=== PATIENT | female | born 1995 | race American Indian/Alaskan Native ===

== ENCOUNTER 2017-04-21 00:30 | Outpatient (CLI) | payer MEDICAID ==
[2017-04-21] MEDS ORDERED: VISTARIL PO ONE (04:31)
--- NOTE | 2017-04-21 08:55 | Event Note ---
Date: 04/21/17 Patient presented to L&D triage to rule out active labor. She is 39 weeks, 5 days gestation, having her first baby. She reported to RN that she was having regular contractions. She reported active movement. She denied vaginal bleeding or leaking of fluid. After oral hydration, contractions spaced. heart rate tracing category 1. Cervix was 2 cm and thick and did not change after several hours of observation. Patient was discharged home with labor precautions as she was not in active labor.
[2017-04-21 09:03] VITALS: BP 101/53
== END 2017-04-21 04:45 | disposition home or self-care (01) ==
LOC: TRG 00:30
PROVIDERS: ATTEND Obstetrics & Gynecology
DX: O47.1 False labor at or after 37 completed weeks of gestation (principal); Z3A.39 39 weeks gestation of pregnancy
CPT/HCPCS: 59025; Q0177

== ENCOUNTER 2020-09-20 03:42 | Outpatient (CLI) | payer MEDICAID ==
[2020-09-20] MEDS ORDERED: LACTATED RINGERS 500 ML IV ONE (04:04)
[2020-09-20 04:10] VITALS: BP 119/71
== END 2020-09-20 06:14 | disposition home or self-care (01) ==
LOC: TRG 03:42 → APU 03:47 → TRG 06:14
PROVIDERS: ATTEND Obstetrics & Gynecology
DX: O47.03 False labor before 37 completed weeks of gestation, third trimester (principal); Z3A.37 37 weeks gestation of pregnancy
CPT/HCPCS: 59025

== ENCOUNTER 2020-10-10 17:27 | Inpatient (IN) | payer MEDICAID ==
[2020-10-10 18:34] LABS: Bacteria,Urine 1+ /HPF (Negative); Bilirubin,Urine NEG (Negative); Blood,Urine NEG (Negative); Color,Urine Yellow (Yellow); Mucus,Urine 3+ /HPF
[2020-10-10 18:35] LABS: Protein,Urine >500 mg/dL (Negative)
[2020-10-10 18:56] LABS: Hematocrit 31.8 % (30.3-42.9); Hemoglobin 10.8 gm/dl (10.1-14.3); Mean Corpuscular HGB Conc 34 % (30-34); Mean Corpuscular Volume 96 fl (79-97); Platelet Count 150 K/mm3 (140-440); Red Cell Distribution Width 14.1 % (13.2-15.2)
[2020-10-10] MEDS ORDERED: LACTATED RINGERS 1,000 ML IV SCH ×2 (19:15→21:45)
[2020-10-10 19:18] LABS: Alanine Aminotransferase 9 units/L (7-56); Uric Acid 5.9 mg/dL (3.5-7.6)
--- NOTE | 2020-10-10 20:26 | History and Physical Report ---
History of Present Illness Date of examination: 10/10/20 History of present illness: Patient was sent to triage by the office after calling and complaining of swelling and headache. Patient without contractions. Menstrual History Regularity: irregular Duration: 4 LMP: 01/2020 LMP reliability: month known LMP character: normal test type: urine test Date: 03/14/2020 BC at conception: BCP Planned ? no EDC Calculations EDC Confirmation: 10/30/2020 Past History : 3 Term Births: 1 Living Children: 1 Elect. Ab: 1 # 1 Delivery date: 2017 Weeks Gestation: 39 Delivery type: [facility] Sex: Female weight: 8-2 Comments: No complication Risk Factors: Smoked Tobacco Use: Never smoker Smokeless Tobacco Use: Never Drug use: no HIV high-risk behavior: no Alcohol use: no Exercise: no Seatbelt use: 100 % PAP Smear History: Date of Last PAP Smear: 01/14/2020 Results: Normal, per pt PAP Smear History: Date of Last PAP Smear: 09/16/2019 Results: normal Past Medical History: Negative Past Medical History Past Surgical History: Negative Past Surgical History Family History Summary: Other Family Member - Has No Family History of Uterine Cancer - Entered On: 03/31/2020 Other Family Member - Has No Family History of Stomach Cancer - Entered On: 03/31/2020 Other Family Member - Has No Family History of Spontaneous DVT-PE - Entered On: 03/31/2020 Other Family Member - Has No Family History of Small Bowel Cancer - Entered On: 03/31/2020 Other Family Member - Has No Family History of Pancreatic Cancer - Entered On: 03/31/2020 Other Family Member - Has No Family History of Ovarvian Cancer - Entered On: 03/31/2020 Other Family Member - Has No Family History of Kidney/Urinary Tract Cancer - Entered On: 03/31/2020 Other Family Member - Has No Family History of Colon Cancer - Entered On: 03/31/2020 Other Family Member - Has No Family History of Brain Cancer - Entered On: 03/31/2020 Other Family Member - Has No Family History of Biliary Tract Cancer - Entered On: 03/31/2020 Mother - Has Family History Breast Cancer - Entered On: 03/31/2020 Social History: Patient is single Smoking History: Patient has never smoked. 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 Infection History Hx of STD: none HIV Risk Eval: no Personal hx. of genital herpes: no Partner hx. of genital herpes: no Rash, Viral, or Febrile illness since last LMP? no Varicella/Chicken Pox Status: Unknown TB Risk: no Genetic History Congenital Heart Defect: Mom: no Dad: no [place] Disease: Mom: no Dad: no Thalassemia Mom: no Dad: no Neural Tube Defect Mom: no Dad: no Down's Syndrome Mom: no Dad: no Micky-Sachs Mom: no Dad: no Sickle Cell Disease/Trait Mom: no Dad: no Hemophilia Mom: no Dad: no Muscular Dystrophy Mom: no Dad: no Cystic Fibrosis Mom: no Dad: no Spickard Chorea Mom: no Dad: no Mental Retardation Mom: no Dad: no Fragile X Mom: no Dad: no Other Genetic/Chromosomal Disorder Mom: no Dad: no Child w/other defect Mom: no Dad: no Enviromental Exposures Enviromental Exposures Reviewed Xray Exposure: no Medication, drug, or alcohol use since LMP: no Chemical/Other Exposure: no Exposure to Cat Liter: no Hx of Parvovirus (Fifth Disease): no Occupational Exposure to Children: none Comments: unemployeed Current Allergies: No known allergies Past History Past Medical History: other (SEE HPI FOR DETAILS) Past Surgical History: other (SEE HPI FOR DETAILS) 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: other (SEE HPI FOR DETAILS) Family/Genetic History: other (SEE HPI FOR DETAILS) Social history: full code, other (SEE HPI FOR DETAILS) - Obstetrical History Expected Date of Delivery: 10/30/20 Actual Gestation: 37 Week(s) 2 Day(s) : 3 Para: 1 Hx # Term Pregnancies: 1 Number of Pregnancies: 0 Spontaneous Abortions: 0 Induced : 1 Number of Living Children: 1 Medications and Allergies Allergies Allergy/AdvReac Type Severity Reaction Status Date / Time No Known Allergies Allergy Verified 04/21/17 04:37 Home Medications Medication Instructions Recorded Confirmed Last Taken Type Vit-Fe Fumar-FA [ 1 tab PO DAILY 09/20/20 09/20/20 1 Day Ago History Vitamin] ~09/19/20 Active Meds: Active Medications Lactated Ringer's (Lactated Ringers) 1,000 mls @ 125 mls/hr IV DIRECT [facility] Review of Systems Constitutional: other (SEE HPI FOR DETAILS) - Vital Signs Vital signs: Vital Signs Pulse BP 74 146/87 10/10/20 18:06 10/10/20 18:06 Temp Pulse Resp BP Pulse Ox 98.4 F 65 20 139/91 100 10/10/20 18:13 10/10/20 20:20 10/10/20 18:13 10/10/20 20:20 10/10/20 20:02 Results Result Diagrams: 10/10/20 Unknown 10/10/20 Unknown Abnormal lab results 10/10/20 10/10/20 10/10/20 Range/Units Unknown Unknown Unknown RBC 3.30 L (3.65-5.03) M/mm3 MCH 33 H (28-32) pg Lactate Dehydrogenase 243 H (91-180) units/L Ur Specific [place] 1.031 H (1.003-1.030) U Epithel Cells (Auto) 14.0 H (0-13.0) /HPF All other labs normal. Assessment and Plan - Patient Problems (1) 37 weeks gestation of Current Visit: Yes Status: Acute (2) Elevated blood pressure affecting in third trimester, antepartum Current Visit: Yes Status: Acute Plan to address problem: Patient's initial blood pressures 130s-150s/80s-90s Her blood pressure readings did improved some during her observation in triage .Labwork within normal limits except for proteinuria. Patient's headache had resolved she denies abdominal pain or visual disturbance. Patient with unfavorable cervix. Will admit obtain 24 hour urine for protein. monitor blood pressure closely. Watch for signs/ symptoms of pre-eclampsia. Discussed plan with patient via phone all questions answered. Precutions given. Patient agreed with plan. (3) Morbid (severe) obesity due to excess calories Current Visit: Yes Status: Acute (4) BMI 39.0-39.9,adult Current Visit: Yes Status: Acute
[2020-10-10] MEDS ORDERED: ALUM-MAG HYDROXIDE-SIMETHICONE 200-200-20MG/5ML ORAL LIQD 30 ML PO PRN (20:33)
[2020-10-10] MEDS ORDERED: ACETAMINOPHEN 325 MG TAB PO PRN (20:33)
[2020-10-10] MEDS ORDERED: DOCUSATE SODIUM 100 MG CAP PO PRN (20:33)
[2020-10-10] MEDS ORDERED: MAGNESIUM HYDROXIDE (MOM) ORAL LIQD UDC PO PRN (20:33)
--- NOTE | 2020-10-11 07:32 | Progress Note ---
Assessment and Plan A: 24 y.o. @ 37.2 wks, obs admission for r/o pre e. P: Continue to observe blood pressure and for s/sx of pre e. 24 hour d/t be completed tonight @ 0805 pm. Subjective - Subjective Date of service: 10/11/20 (Pt doing well) Principal diagnosis: IUP @ 37.2 wks, r/o pre eclampsia Objective - Vital Signs Vital Signs: Vital Signs - 12hr 10/10/20 10/10/20 10/10/20 19:35 19:37 19:42 Pulse Rate 54 L 60 61 Blood Pressure 151/86 O2 Sat by Pulse 97 96 Oximetry 10/10/20 10/10/20 10/10/20 19:47 19:50 19:52 Pulse Rate 66 57 L 61 Blood Pressure 155/92 O2 Sat by Pulse 97 98 Oximetry 10/10/20 10/10/20 10/10/20 19:57 20:02 20:20 Pulse Rate 67 72 65 Blood Pressure 139/91 O2 Sat by Pulse 99 100 Oximetry 10/10/20 10/10/20 10/10/20 21:36 22:07 22:20 Pulse Rate 69 74 64 Blood Pressure 141/83 159/91 126/65 O2 Sat by Pulse Oximetry 10/10/20 10/11/20 10/11/20 23:10 00:01 00:02 Pulse Rate 60 71 63 Blood Pressure 126/67 163/74 139/68 O2 Sat by Pulse Oximetry 10/11/20 10/11/20 10/11/20 01:00 02:01 03:01 Pulse Rate 71 64 82 Blood Pressure 140/85 143/75 136/80 O2 Sat by Pulse Oximetry 10/11/20 10/11/20 10/11/20 04:00 05:01 06:01 Pulse Rate 60 59 L 62 Blood Pressure 138/69 147/69 155/87 O2 Sat by Pulse Oximetry 10/11/20 07:01 Pulse Rate 71 Blood Pressure 145/81 O2 Sat by Pulse Oximetry - Exam Narrative Exam: Pt denies GARCIA, blurred vision, spots before your eyes, chest pain, shortness of breath, upper abdominal pain, vaginal bleeding, LOF. Pt states that she is having some occasional ctxs. We discussed that if ctxs increase in frequency, or any pre e s/sx occur to let the RN know immediately. Pt verbalized understanding. Breasts: deferred Cardiovascular: Regular rate Lungs: Normal air movement Abdomen: Present: normal appearance, soft Uterus: Present: normal FHR: category 1 Uterine Contraction Monitor Mode: External Uterine Contraction Pattern: Absent Extremities: edema (Trace generalized) Deep Tendon Reflex Grade: Normal +2 - Labs Labs: Abnormal Labs 10/10/20 10/10/20 10/10/20 Unknown Unknown Unknown RBC 3.30 L MCH 33 H Lactate Dehydrogenase 243 H Ur Specific [place] 1.031 H U Epithel Cells (Auto) 14.0 H Laboratory Results - last 24 hr 10/10/20 10/10/20 10/10/20 Unknown Unknown Unknown WBC 8.8 RBC 3.30 L Hgb 10.8 Hct 31.8 MCV 96 MCH 33 H MCHC 34 RDW 14.1 Plt Count 150 Creatinine 0.7 Estimated GFR > 60 Uric Acid 5.9 AST 16 ALT 9 Lactate Dehydrogenase 243 H Urine Color Yellow Urine Turbidity Slightly-cloudy Urine pH 6.0 Ur Specific [place] 1.031 H Urine Protein >500 Urine Glucose (UA) Neg Urine Ketones Neg Urine Blood Neg Urine Nitrite Neg Urine Bilirubin Neg Urine Urobilinogen 4.0 Ur Leukocyte Esterase Tr Urine WBC (Auto) 3.0 Urine RBC (Auto) 7.0 U Epithel Cells (Auto) 14.0 H Urine Bacteria (Auto) 1+ Urine Mucus 3+
[2020-10-11] MEDS ORDERED: PRENATAL VIT27-FE FUMARATE-FOLIC ACID VIT TAB PO SCH (10:00)
--- NOTE | 2020-10-11 17:29 | Event Note ---
Date: 10/11/20 (Starting IOL) Received a call from RN taking care of patient to ask about the plan of care for patient. When reviewing vital signs noticed that blood pressure had been elevated with the highest being 176/95. The repeat blood pressure 161/100. Urine dipstick this AM was greater than 500. At this time patient continues to deny GARCIA, blurred vision, spots before her eyes, chest pain, shortness of breath, and upper abdominal pain. Consulted with Dr. Dobson. Will initiate IOL, hold off on magnesium infusion until more active labor and/or if blood pressures remain consistently elevated, and discontinue 24 hour urine. Explained this plan of care to the patient, IOL to be started d/t elevated blood pressures and large amount of protein in her urine. Will allow her to shower and eat dinner and then place Cervidil. Pt verbalized understanding and all questions and concerns were addressed. Orders to start IOL placed.
[2020-10-11] MEDS ORDERED: TERBUTALINE 1 MG/1 ML INJ SUB-Q PRN (17:30)
[2020-10-11] MEDS ORDERED: CARBOPROST TROMETHAMINE 250 MCG/1 ML INJ IM PRN (17:30)
[2020-10-11] MEDS ORDERED: NALOXONE 0.4 MG/1 ML INJ IV PRN (17:30)
[2020-10-11] MEDS ORDERED: miSOPROStol 200 MCG TAB PR PRN (17:30)
[2020-10-11] MEDS ORDERED: fentaNYL 100 MCG/2 ML INJ IV PRN (17:30)
[2020-10-11] MEDS ORDERED: ePHEDrine SULFATE 50 MG/1 ML INJ IV PRN (17:30)
[2020-10-11] MEDS ORDERED: PROMETHAZINE 25 MG TAB PO PRN (17:30)
[2020-10-11] MEDS ORDERED: LOPERAMIDE 2 MG CAP PO PRN (17:30)
[2020-10-11] MEDS ORDERED: ONDANSETRON 4 MG/2 ML INJ IV PRN (17:30)
[2020-10-11] MEDS ORDERED: OXYTOCIN 10 UNIT/1 ML INJ IM PRN (17:30)
[2020-10-11] MEDS ORDERED: LACTATED RINGERS 1,000 ML IV SCH (17:30)
[2020-10-11] MEDS ORDERED: MINERAL OIL 30 ML ORAL LIQD PO PRN (17:30)
[2020-10-11] MEDS ORDERED: ACETAMINOPHEN 500 MG TAB PO PRN (17:37)
--- NOTE | 2020-10-11 17:46 | Event Note ---
Date: 10/11/20 Given pt has had several blood pressures in the severe ranges and she has protinuria on urine dip, Will give dx of severe pre E and proceed with IOL at this time. 24 hour protein has been discontinued as it will not aid in decision making at this time. Pt initially did have a headache which prompted call in office and f/u in triage.
[2020-10-11] MEDS ORDERED: CALCIUM GLUCONATE 1000 MG/10 ML INJ IV ONE (18:00)
[2020-10-11] MEDS ORDERED: DINOPROSTONE 10 MG VAG SUPP VG ONE (18:00)
[2020-10-11] MEDS ORDERED: LIDOCAINE (2%) 20 MG/1 ML VIAL 20 ML MDV INFILTRATI ONE (19:00)
--- NOTE | 2020-10-12 07:35 | Progress Note ---
Assessment and Plan discussed plan with patient for vaginal cytotec and reassess. pt is aware it could take several doses and if no signs of labor by this evening, will reevaluate. All questions addressed, pt verbalizes understanding. - Patient Problems (1) Pre-eclampsia Current Visit: Yes Status: Acute Qualifiers: Trimester: third trimester Qualified Code(s): O14.93 - Unspecified pre- eclampsia, third trimester Plan to address problem: Plan to start Mag sulfate when in labor IOL in progress Monitor for worsening s/s pre-e (2) 37 weeks gestation of Current Visit: Yes Status: Acute Subjective - Subjective Date of service: 10/12/20 Principal diagnosis: IUP @ 37.3 wks, IOL for pre-e Patient reports: movement normal, contractions (cramping through the night), no loss of fluid, no vaginal bleeding, no other (denies GARCIA, visual changes or epigastric pain) Objective - Vital Signs Vital Signs: Vital Signs - 12hr 10/11/20 10/12/20 10/12/20 23:15 02:10 03:48 Temperature 98.5 F Pulse Rate 74 61 Respiratory Rate Blood Pressure 137/78 135/90 Blood Pressure [Left] O2 Sat by Pulse Oximetry 10/12/20 10/12/20 10/12/20 03:53 03:56 03:58 Temperature Pulse Rate 58 L 62 68 Respiratory Rate Blood Pressure Blood Pressure [Left] O2 Sat by Pulse 96 94 97 Oximetry 10/12/20 10/12/20 10/12/20 04:02 04:03 04:08 Temperature Pulse Rate 58 L 60 58 L Respiratory Rate Blood Pressure Blood Pressure [Left] O2 Sat by Pulse 94 94 95 Oximetry 10/12/20 10/12/20 10/12/20 04:10 04:13 04:15 Temperature 98.6 F Pulse Rate 72 60 Respiratory Rate Blood Pressure Blood Pressure [Left] O2 Sat by Pulse 93 96 Oximetry 10/12/20 10/12/20 10/12/20 04:18 04:23 04:28 Temperature Pulse Rate 64 58 L 58 L Respiratory Rate Blood Pressure 175/86 Blood Pressure [Left] O2 Sat by Pulse 96 96 96 Oximetry 10/12/20 10/12/20 10/12/20 04:33 04:38 04:43 Temperature Pulse Rate 55 L 61 56 L Respiratory Rate Blood Pressure Blood Pressure [Left] O2 Sat by Pulse 97 96 97 Oximetry 10/12/20 10/12/20 10/12/20 04:48 04:53 04:55 Temperature Pulse Rate 64 56 L 76 Respiratory Rate Blood Pressure 155/87 Blood Pressure [Left] O2 Sat by Pulse 97 97 94 Oximetry 10/12/20 10/12/20 10/12/20 04:58 05:03 05:08 Temperature Pulse Rate 73 60 62 Respiratory Rate Blood Pressure Blood Pressure [Left] O2 Sat by Pulse 96 97 96 Oximetry 10/12/20 10/12/20 10/12/20 05:13 05:18 05:23 Temperature Pulse Rate 59 L 61 67 Respiratory Rate Blood Pressure Blood Pressure [Left] O2 Sat by Pulse 96 96 97 Oximetry 10/12/20 10/12/20 10/12/20 05:28 05:33 05:38 Temperature Pulse Rate 78 85 73 Respiratory Rate Blood Pressure Blood Pressure [Left] O2 Sat by Pulse 86 98 98 Oximetry 10/12/20 10/12/20 10/12/20 05:43 05:48 05:53 Temperature Pulse Rate 61 61 66 Respiratory Rate Blood Pressure Blood Pressure [Left] O2 Sat by Pulse 98 98 98 Oximetry 10/12/20 10/12/20 10/12/20 05:58 07:22 07:24 Temperature 98.0 F Pulse Rate 69 55 L 57 L Respiratory 16 Rate Blood Pressure 138/78 Blood Pressure 138/78 [Left] O2 Sat by Pulse 98 92 98 Oximetry - Exam Breasts: normal Cardiovascular: Regular rate Lungs: Normal air movement Abdomen: Present: normal appearance, soft Vulva: both: normal Uterus: Present: normal, fundal height above umbilicus FHR: category 1 Uterine Contraction Monitor Mode: External Uterine Contraction Pattern: Absent Uterine Tone Measurement Phase: Resting Extremities: normal Deep Tendon Reflex Grade: Normal +2 - Labs Labs: Abnormal Labs 10/10/20 10/10/20 10/10/20 Unknown Unknown Unknown RBC 3.30 L MCH 33 H Lactate Dehydrogenase 243 H Ur Specific [place] 1.031 H U Epithel Cells (Auto) 14.0 H Laboratory Results - last 24 hr 10/11/20 10/11/20 10/11/20 20:55 20:55 Unknown Syphilis IgG Antibody Nonreactive Coronavirus (PCR) Negative Blood Type O POSITIVE Antibody Screen Negative
[2020-10-12] MEDS: miSOPROStol 25 MCG TAB VG SCH ×2 (08:17→11:57)
[2020-10-12] MEDS: LACTATED RINGERS 1,000 ML IV SCH ×2 (09:11→17:51)
[2020-10-12] MEDS ORDERED: AMPICILLIN/NS 2 GM/100 ML 2 GM/100 ML BAG IV ONE ×2 (11:00→16:00)
[2020-10-12] MEDS ORDERED: AMPICILLIN/NS 1 GM/50 ML 1 GM/50 ML BAG IV SCH (15:00)
[2020-10-12] MEDS ORDERED: hydrALAZINE 20 MG/1 ML INJ IV NR (15:05)
[2020-10-12] MEDS ORDERED: MAGNESIUM SULFATE 4 GM/100 ML BAG IV ONE (15:30)
--- NOTE | 2020-10-12 15:55 | Progress Note ---
Assessment and Plan Pt is feeling ctx, denies need for epidural at this time. Will start pitocin to continue IOL. Anticipate . - Patient Problems (1) Pre-eclampsia Current Visit: Yes Status: Acute Qualifiers: Trimester: third trimester Qualified Code(s): O14.93 - Unspecified pre- eclampsia, third trimester Plan to address problem: Mag started for neuro protection, pt has started to labor after second dose of cytotec. (2) 37 weeks gestation of Current Visit: Yes Status: Acute (3) GBS (group B Streptococcus carrier), +RV culture, currently Current Visit: Yes Status: Acute Plan to address problem: Will start Ampicillin q4hrs until delivery Subjective - Subjective Date of service: 10/12/20 Principal diagnosis: IUP @ 37.3 wks, IOL for pre-e Patient reports: movement normal, contractions, no loss of fluid, no vaginal bleeding, no other (denies GARCIA, visual changes or epigastric pain) Objective - Vital Signs Vital Signs: Vital Signs - 12hr 10/12/20 10/12/20 10/12/20 03:53 03:56 03:58 Temperature Pulse Rate 58 L 62 68 Respiratory Rate Blood Pressure Blood Pressure [Left] O2 Sat by Pulse 96 94 97 Oximetry 10/12/20 10/12/20 10/12/20 04:02 04:03 04:08 Temperature Pulse Rate 58 L 60 58 L Respiratory Rate Blood Pressure Blood Pressure [Left] O2 Sat by Pulse 94 94 95 Oximetry 10/12/20 10/12/20 10/12/20 04:10 04:13 04:15 Temperature 98.6 F Pulse Rate 72 60 Respiratory Rate Blood Pressure Blood Pressure [Left] O2 Sat by Pulse 93 96 Oximetry 10/12/20 10/12/20 10/12/20 04:18 04:23 04:28 Temperature Pulse Rate 64 58 L 58 L Respiratory Rate Blood Pressure 175/86 Blood Pressure [Left] O2 Sat by Pulse 96 96 96 Oximetry 10/12/20 10/12/20 10/12/20 04:33 04:38 04:43 Temperature Pulse Rate 55 L 61 56 L Respiratory Rate Blood Pressure Blood Pressure [Left] O2 Sat by Pulse 97 96 97 Oximetry 10/12/20 10/12/20 10/12/20 04:48 04:53 04:55 Temperature Pulse Rate 64 56 L 76 Respiratory Rate Blood Pressure 155/87 Blood Pressure [Left] O2 Sat by Pulse 97 97 94 Oximetry 10/12/20 10/12/20 10/12/20 04:58 05:03 05:08 Temperature Pulse Rate 73 60 62 Respiratory Rate Blood Pressure Blood Pressure [Left] O2 Sat by Pulse 96 97 96 Oximetry 10/12/20 10/12/20 10/12/20 05:13 05:18 05:23 Temperature Pulse Rate 59 L 61 67 Respiratory Rate Blood Pressure Blood Pressure [Left] O2 Sat by Pulse 96 96 97 Oximetry 10/12/20 10/12/20 10/12/20 05:28 05:33 05:38 Temperature Pulse Rate 78 85 73 Respiratory Rate Blood Pressure Blood Pressure [Left] O2 Sat by Pulse 86 98 98 Oximetry 10/12/20 10/12/20 10/12/20 05:43 05:48 05:53 Temperature Pulse Rate 61 61 66 Respiratory Rate Blood Pressure Blood Pressure [Left] O2 Sat by Pulse 98 98 98 Oximetry 10/12/20 10/12/20 10/12/20 05:58 07:22 07:24 Temperature 98.0 F Pulse Rate 69 55 L 57 L Respiratory 16 Rate Blood Pressure 138/78 Blood Pressure 138/78 [Left] O2 Sat by Pulse 98 92 98 Oximetry 10/12/20 10/12/20 10/12/20 07:25 11:10 11:11 Temperature 98.3 F Pulse Rate 68 65 Respiratory 20 Rate Blood Pressure 137/79 Blood Pressure 137/79 [Left] O2 Sat by Pulse 94 98 Oximetry 10/12/20 10/12/20 10/12/20 14:37 14:38 14:42 Temperature 98 F Pulse Rate 62 70 70 Respiratory 17 Rate Blood Pressure 195/107 Blood Pressure [Left] O2 Sat by Pulse 99 96 100 Oximetry 10/12/20 10/12/20 10/12/20 14:47 14:52 14:56 Temperature Pulse Rate 80 66 60 Respiratory Rate Blood Pressure 185/103 Blood Pressure [Left] O2 Sat by Pulse 100 100 Oximetry 10/12/20 10/12/20 10/12/20 14:57 15:02 15:07 Temperature Pulse Rate 60 57 L 65 Respiratory Rate Blood Pressure Blood Pressure [Left] O2 Sat by Pulse 99 99 99 Oximetry 10/12/20 10/12/20 10/12/20 15:09 15:12 15:17 Temperature Pulse Rate 61 62 74 Respiratory Rate Blood Pressure 171/84 Blood Pressure [Left] O2 Sat by Pulse 100 99 Oximetry 10/12/20 10/12/20 10/12/20 15:22 15:26 15:27 Temperature Pulse Rate 68 57 L 61 Respiratory Rate Blood Pressure 188/96 Blood Pressure [Left] O2 Sat by Pulse 99 99 Oximetry 10/12/20 10/12/20 10/12/20 15:32 15:37 15:39 Temperature Pulse Rate 69 79 77 Respiratory Rate Blood Pressure 163/87 Blood Pressure [Left] O2 Sat by Pulse 99 98 Oximetry 10/12/20 10/12/20 10/12/20 15:42 15:43 15:44 Temperature Pulse Rate 81 82 82 Respiratory Rate Blood Pressure 147/82 152/84 Blood Pressure [Left] O2 Sat by Pulse 99 Oximetry 10/12/20 15:47 Temperature Pulse Rate 85 Respiratory Rate Blood Pressure Blood Pressure [Left] O2 Sat by Pulse 99 Oximetry - Exam Cardiovascular: Regular rate Lungs: Normal air movement Abdomen: Present: normal appearance, soft Vulva: both: normal Uterus: Present: normal, fundal height above umbilicus FHR: auscultation normal, category 1 Uterine Contraction Monitor Mode: External Cervical Dilatation: 3.5 (posterior but very soft) Cervical Effacement Percentage: 80 station: -1 Uterine Contraction Frequency (min): 2-4 Uterine Contraction Duration: 50-60 Uterine Contraction Pattern: Regular Uterine Tone Measurement Phase: Contraction Uterine Contraction Intensity: Moderate Extremities: normal Deep Tendon Reflex Grade: Normal +2 - Labs Labs: Abnormal Labs 10/10/20 10/10/20 10/10/20 Unknown Unknown Unknown RBC 3.30 L MCH 33 H Lactate Dehydrogenase 243 H Ur Specific [place] 1.031 H U Epithel Cells (Auto) 14.0 H Laboratory Results - last 24 hr 10/11/20 10/11/20 20:55 20:55 Syphilis IgG Antibody Nonreactive Blood Type O POSITIVE Antibody Screen Negative
[2020-10-12] MEDS ORDERED: OXYTOCIN DRIP 30 UNITS/500 ML BAG IV SCH (16:00)
[2020-10-12] MEDS: MAGNESIUM SULFATE 40GM/1000ML 40 GM/1,000 ML BAG IV SCH (16:27)
[2020-10-12] MEDS ORDERED: NALOXONE 2 MG/2 ML INJ IV PRN (17:47)
[2020-10-12] MEDS ORDERED: ePHEDrine SULFATE 50 MG/1 ML INJ IV PRN (17:47)
--- NOTE | 2020-10-12 17:49 | Anesthesia Consultation ---
Anesthesia Consult and Med Hx Date of service: 10/12/20 - Airway Anesthetic Teeth Evaluation: Good ROM Head & Neck: Adequate Mental/Hyoid Distance: Adequate Mallampati Class: Class II Intubation Access Assessment: Probably Good - Pulmonary Exam CTA: Yes - Cardiac Exam Cardiac Exam: RRR - Pre-Operative Health Status ASA Pre-Surgery Classification: ASA3 Proposed Anesthetic Plan: Epidural - Pulmonary Hx Asthma: No COPD: No Hx Pneumonia: No - Cardiovascular System Hx Hypertension: Yes - Central Nervous System Hx Seizures: No Hx Psychiatric Problems: No - Endocrine Hx Renal Disease: No Hx End Stage Renal Disease: No Hx Hypothyroidism: No Hx Hyperthyroidism: No - Hematic Hx Anemia: No Hx Sickle Cell Disease: No - Other Systems Hx Alcohol Use: No Hx Obesity: Yes
--- NOTE | 2020-10-12 17:57 | Event Note ---
Date: 10/12/20 SROM - clear fluid. Patient being bolus for epidural. IUPC and ISE placed without difficulty for adequate monitoring. SVE now midline, 4-5/90/-1.
[2020-10-12] MEDS ORDERED: fentaNYL-BUPIV 2 MCG/ML-0.125% 200 MCG/100 ML BAG EPIDURAL SCH (18:00)
--- NOTE | 2020-10-12 18:24 | Progress Note ---
Labor Epidural - Labor Epidural Start Time: 18:16 Stop Time: 18:21 Performed by:: GERALDINE ROSAS Procedure: Patient is requesting epidural for labor pain. H&P, and labs reviewed. Procedure explained, questions answered, consent obtained. Patient in sitting position with blood pressure cuff and pulse ox on and working. Timeout performed immediately before start of procedure. Sterile chlorahexadine 0.5% prep/drape. 5 mL 1% lidocaine skin wheal at L[3]-L[4]. 18-gauge Tuohy epidural needle advanced to [id number] with saline at [7] cm. Epidural catheter advanced to [12] cm, negative aspiration for blood and csf, negative test dose 3 ml 1.5% lidocaine with epinephrine. Epidural dexmedetomidine [30] mcg administered. Sterile steri-strips and tegaderm applied, followed by tape reinforcement. Patient tolerated procedure well. Royce REHMNA
[2020-10-12] MEDS: OXYTOCIN DRIP 30 UNITS/500 ML BAG IV SCH ×2 (19:18→22:19)
--- NOTE | 2020-10-12 19:19 | Procedure Note ---
OB Delivery Note - Delivery Date of Delivery: 10/12/20 ( male) [employer] Internship: ILENE MELGAR Estimated blood loss: 200cc - Vaginal Delivery presentation: vertex Delivery position: OA (MINNIE) Intrapartum events: preeclampsia, mult.variable deceleratio Delivery induction: cervidil Delivery augmentation: rupture of membranes, pitocin Delivery monitor: internal FHT, internal uterine Route of delivery: Delivery placenta: spontaneous Delivery cord: nuchal cord (x3, somersaulted though. long cord), 3 umbilical vessels Episiotomy: none Delivery laceration: other (periurethral - no need for repair) Anesthesia: epidural Delivery comments: Male infant born MINNIE over intact perineum, triple cord around neck, somersaulted through. placed skin to skin on mother's abdomen. 3 vessel cord clamped and cut after cessation of pulsation. cord blood collected. placenta del intact and complete. no lacerations to repair. EBL 200, apgars 8/9. all counts correct, mother and baby LDR stable Pt will remain on labor and delivery for 24hr for mag sulfate therapy. - Infant A at 1 minute: 8 at 5 minutes: 9 Infant Gender: Male (6#9.5oz)
--- NOTE | 2020-10-13 05:45 | Progress Note ---
Assessment and Plan 24yo now male NB PreE on MGSO4 X 24hr, started Labetalol 200mg BID. FF below umb Lochia small, perineum intact. H&H pending. Stable s/p , PreE P: continue pathway. Transfer to [facility] with completion of MGSO4 Dr Bartlett consulted - Patient Problems (1) (normal spontaneous vaginal delivery) Onset Date: ~10/12/20 Current Visit: Yes Status: Acute Plan to address problem: Continue pathway Transfer to [facility] after completing the 24hr of MGSO4 (2) Pre-eclampsia Onset Date: ~10/12/20 Current Visit: Yes Status: Acute Qualifiers: Trimester: third trimester Qualified Code(s): O14.93 - Unspecified pre- eclampsia, third trimester Plan to address problem: BP 160-130/90-70 MGSO4 infusing @ 2gm/hr Will start Labetalol po 200mg BID first dose now Will continue to monitor on L&D until @ 1900 this evening. Subjective - Subjective Date of service: 10/13/20 (denies GARCIA, blurred vision, chest pain) Principal diagnosis: s/p PreE MGSO4 Patient reports: pain well controlled [place]: doing well Objective - Vital Signs Latest vital signs: Vital Signs Temp Pulse Resp BP BP Pulse Ox 10/13/20 05:38 86 95 10/13/20 05:33 87 95 10/13/20 05:31 110 H 126/76 10/13/20 05:28 90 96 10/13/20 05:23 90 96 10/13/20 05:18 86 96 10/13/20 05:13 79 96 10/13/20 05:08 87 97 10/13/20 05:03 80 96 10/13/20 05:01 81 131/77 10/13/20 04:58 82 96 10/13/20 04:53 79 95 10/13/20 04:48 98 H 95 10/13/20 04:44 90 93 10/13/20 04:43 86 95 10/13/20 04:38 83 95 10/13/20 04:36 84 94 10/13/20 04:33 83 96 10/13/20 04:31 77 129/73 10/13/20 04:28 85 96 10/13/20 04:23 82 96 10/13/20 04:18 90 98 10/13/20 04:13 83 96 10/13/20 04:08 84 96 10/13/20 04:03 83 97 10/13/20 04:01 82 131/74 10/13/20 03:58 84 97 10/13/20 03:53 87 97 10/13/20 03:48 86 97 10/13/20 03:43 101 H 98 10/13/20 03:38 94 H 97 10/13/20 03:33 93 H 97 10/13/20 03:31 84 157/77 10/13/20 03:28 98 H 98 10/13/20 03:23 94 H 97 10/13/20 03:18 88 98 10/13/20 03:13 87 98 10/13/20 03:11 98.6 F 10/13/20 03:08 88 98 10/13/20 03:03 89 98 10/13/20 03:01 85 143/79 10/13/20 02:58 98 H 98 10/13/20 02:53 93 H 99 10/13/20 02:48 90 99 10/13/20 02:43 100 H 97 10/13/20 02:38 90 98 10/13/20 02:33 92 H 98 10/13/20 02:31 92 H 159/82 10/13/20 02:28 101 H 97 10/13/20 02:23 93 H 98 10/13/20 02:18 100 H 98 10/13/20 02:13 101 H 99 10/13/20 02:08 100 H 99 10/13/20 02:03 99 H 98 10/13/20 02:01 96 H 144/76 10/13/20 01:58 98 H 98 10/13/20 01:53 104 H 98 10/13/20 01:48 92 H 97 10/13/20 01:43 90 96 10/13/20 01:38 87 97 10/13/20 01:33 94 H 97 10/13/20 01:31 100 H 131/78 10/13/20 01:28 86 96 10/13/20 01:23 92 H 96 10/13/20 01:18 90 97 10/13/20 01:13 90 97 10/13/20 01:08 93 H 97 10/13/20 01:03 89 97 03/11/21 01:01 86 130/72 10/13/20 00:58 90 97 10/13/20 00:53 92 H 97 10/13/20 00:48 85 97 10/13/20 00:43 88 98 10/13/20 00:38 98 H 97 10/13/20 00:33 91 H 99 10/13/20 00:31 97 H 169/90 10/13/20 00:28 89 98 10/13/20 00:23 95 H 99 10/13/20 00:18 92 H 98 10/13/20 00:13 93 H 100 10/13/20 00:08 94 H 98 10/13/20 00:03 103 H 98 10/12/20 23:58 81 98 10/12/20 23:53 90 98 10/12/20 23:48 92 H 99 10/12/20 23:46 108 H 90 10/12/20 23:43 85 98 10/12/20 23:39 105 H 90 10/12/20 23:38 101 H 99 10/12/20 23:33 101 H 98 10/12/20 23:31 95 H 170/97 92 10/12/20 23:28 82 97 10/12/20 23:23 81 97 10/12/20 23:18 80 97 10/12/20 23:13 80 98 10/12/20 23:10 98.3 F 10/12/20 23:08 83 97 10/12/20 23:03 82 97 10/12/20 23:01 85 143/82 10/12/20 22:58 81 97 10/12/20 22:53 83 97 10/12/20 22:48 80 97 10/12/20 22:43 81 97 10/12/20 22:38 80 97 10/12/20 22:33 79 98 10/12/20 22:31 77 125/65 10/12/20 22:28 77 97 10/12/20 22:23 73 98 10/12/20 22:18 77 98 10/12/20 22:13 86 98 10/12/20 22:08 80 99 10/12/20 22:03 85 97 10/12/20 22:01 86 145/72 10/12/20 21:58 81 95 10/12/20 21:53 76 96 03/10/21 21:48 72 96 10/12/20 21:43 81 98 10/12/20 21:38 74 97 10/12/20 21:33 73 97 10/12/20 21:28 80 97 10/12/20 21:23 72 97 10/12/20 21:18 78 97 10/12/20 21:13 74 97 10/12/20 21:08 81 99 10/12/20 21:03 82 99 10/12/20 20:58 84 98 10/12/20 20:53 77 98 10/12/20 20:48 78 99 10/12/20 20:43 80 99 10/12/20 20:38 91 H 99 10/12/20 20:35 76 157/71 10/12/20 20:33 82 98 10/12/20 20:28 89 99 10/12/20 20:23 83 98 10/12/20 20:18 75 98 10/12/20 20:13 75 99 10/12/20 20:08 77 99 10/12/20 20:06 90 88 10/12/20 20:05 83 152/83 10/12/20 20:03 83 97 10/12/20 19:58 76 98 10/12/20 19:54 91 H 91 10/12/20 19:53 87 100 10/12/20 19:49 77 129/73 10/12/20 19:48 84 99 10/12/20 19:43 78 99 10/12/20 19:41 79 94 10/12/20 19:38 81 99 10/12/20 19:34 75 128/64 10/12/20 19:33 72 98 10/12/20 19:28 77 100 10/12/20 19:23 75 99 10/12/20 19:19 80 163/75 10/12/20 19:18 78 100 10/12/20 19:13 81 99 10/12/20 19:10 99.3 F 10/12/20 19:08 90 99 10/12/20 19:03 99 H 98 10/12/20 18:59 88 93 10/12/20 18:58 83 99 10/12/20 18:53 78 97 10/12/20 18:51 76 135/74 10/12/20 18:48 80 99 10/12/20 18:43 75 99 10/12/20 18:38 83 100 10/12/20 18:33 71 159/85 99 10/12/20 18:30 78 163/89 10/12/20 18:28 86 99 10/12/20 18:27 68 91 10/12/20 18:25 91 H 146/78 10/12/20 18:23 104 H 97 10/12/20 18:21 90 142/82 10/12/20 18:19 92 H 143/83 10/12/20 18:18 93 H 99 10/12/20 18:17 86 146/83 10/12/20 18:13 93 H 99 10/12/20 18:12 86 144/84 10/12/20 18:10 89 141/84 10/12/20 18:08 95 H 99 10/12/20 18:03 94 H 99 10/12/20 17:58 95 H 99 10/12/20 17:53 88 98 10/12/20 17:48 91 H 98 10/12/20 17:47 102 H 131/76 10/12/20 17:43 88 98 10/12/20 17:38 97 H 98 10/12/20 17:33 94 H 98 10/12/20 17:32 97 H 166/97 10/12/20 17:28 101 H 98 10/12/20 17:23 98 H 98 10/12/20 17:18 99 H 98 10/12/20 17:16 100 H 161/91 10/12/20 17:13 113 H 99 10/12/20 17:08 95 H 99 10/12/20 17:03 84 99 10/12/20 16:58 86 98 10/12/20 16:53 79 99 10/12/20 16:48 83 98 10/12/20 16:43 85 97 10/12/20 16:30 87 99 10/12/20 16:25 89 99 10/12/20 16:13 82 160/75 10/12/20 16:12 82 99 10/12/20 16:08 80 163/77 10/12/20 16:07 87 99 10/12/20 16:04 89 161/83 10/12/20 16:02 94 H 98 10/12/20 15:58 78 162/79 10/12/20 15:57 94 H 99 10/12/20 15:54 85 154/77 10/12/20 15:52 82 98 10/12/20 15:49 81 165/79 10/12/20 15:47 85 99 10/12/20 15:44 82 152/84 10/12/20 15:43 82 147/82 10/12/20 15:42 81 99 10/12/20 15:39 77 163/87 10/12/20 15:37 79 98 10/12/20 15:32 69 99 10/12/20 15:27 61 99 10/12/20 15:26 57 L 188/96 10/12/20 15:22 68 99 10/12/20 15:17 74 99 10/12/20 15:12 62 100 10/12/20 15:09 61 171/84 10/12/20 15:07 65 99 10/12/20 15:02 57 L 99 10/12/20 14:57 60 99 10/12/20 14:56 60 185/103 10/12/20 14:52 66 100 10/12/20 14:47 80 100 10/12/20 14:42 70 100 10/12/20 14:38 98 F 70 17 195/107 96 10/12/20 14:37 62 99 10/12/20 11:11 65 137/79 10/12/20 11:10 98.3 F 68 20 137/79 98 10/12/20 07:25 94 10/12/20 07:24 98.0 F 57 L 16 138/78 98 10/12/20 07:22 55 L 138/78 92 10/12/20 05:58 69 98 10/12/20 05:53 66 98 10/12/20 05:48 61 98 Intake and Output 10/12/20 10/12/20 10/13/20 14:59 22:59 06:59 Intake Total 1512.933 Output Total 400 900 Balance 1112.933 -900 Intake: IV 1512.933 Lactated Ringers 1,000 ml 1000 @ 125 mls/hr IV DIRECT [facility] Rx#:[id number] Left Wrist 10 PITOCin/NS 30 UNIT/500ML 2.933 30 units In 500 ml @ 4 mls/hr IV TITR [facility] Rx#: [id number] PITOCin/NS 30 UNIT/500ML 500 30 units In 500 ml @ 40 mls/hr IV TITR [facility] Rx#: [id number] Output: Urine 400 900 Indwelling Catheter 200 900 Void 200 Other: Total, Output Amount 200 150 Estimated Blood Loss 200 - Exam Breasts: Present: normal Cardiovascular: Present: Regular rate Lungs: Present: Normal air movement Abdomen: Present: normal appearance, soft Extremities: Present: normal Incision: Present: normal - Labs Labs: Abnormal lab results 10/12/20 Range/Units 23:12 Magnesium 4.10 H (1.7-2.3) mg/dL
--- NOTE | 2020-10-13 07:50 | Post Anesthesia Evaluation ---
- Post Anesthesia Evaluation Patient Participated: Yes Airway Patent: Yes Stable Respiratory Function: Yes Nausea/Vomiting: No Temp > 96.8F: Yes Pain Manageable: Yes Adequeate Hydration: Yes Anesthesia Complications: No Block Receding Appropriately: Yes Patient on Ventilator: No
[2020-10-13] MEDS: MAGNESIUM SULFATE 40GM/1000ML 40 GM/1,000 ML BAG IV SCH (12:03)
[2020-10-13] MEDS ORDERED: diphenhydrAMINE 25 MG CAP PO PRN (22:32)
[2020-10-13] MEDS ORDERED: LANOLIN/ZINC/DIMETHICONE (LANSINOH) 7 GM TP PRN (22:32)
[2020-10-13] MEDS ORDERED: BENZOCAINE/MENTHOL 20/0.5% TOP SPRAY 56 GM TP PRN (22:32)
[2020-10-13] MEDS ORDERED: PROMETHAZINE 25 MG TAB PO PRN (22:32)
[2020-10-13] MEDS ORDERED: MAGNESIUM HYDROXIDE (MOM) ORAL LIQD UDC PO PRN (22:32)
[2020-10-13] MEDS ORDERED: WITCH HAZEL/ GLYCERIN PAD TP PRN (22:32)
[2020-10-13] MEDS ORDERED: ACETAMINOPHEN 325 MG TAB PO PRN (22:32)
[2020-10-14 00:54] LABS: Hematocrit 29.2 % (30.3-42.9); Hemoglobin 9.8 gm/dl (10.1-14.3)
[2020-10-14] MEDS: IBUPROFEN 800 MG TAB PO SCH ×5 (05:57→23:15)
[2020-10-14] MEDS ORDERED: DIPHtheria,PERTUSSIS(ACELL),TETANUS VACCINE/PF 0.5 ML VIAL IM ONE (06:00)
--- NOTE | 2020-10-14 08:03 | Discharge Summary ---
Providers - Providers Date of Admission: 10/11/20 20:38 Date of discharge: 10/14/20 (desires d/c home) Attending physician: JERRY SOUZA Primary care physician: JERRY SOUZA Hospitalization Reason for admission: Elevated blood pressures, IOL for pre-e Condition: Good Pertinent studies: post delivery H&H 9.8/29.2, anemia d/t acute blood loss, asymptomatic Procedures: Hospital course: and course complicated by pre-e Disposition: DC-01 TO HOME OR SELFCARE - Discharge Diagnoses (1) Pre-eclampsia Status: Acute Qualifiers: Trimester: third trimester Qualified Code(s): O14.93 - Unspecified pre- eclampsia, third trimester (2) (normal spontaneous vaginal delivery) Status: Acute Core Measure Documentation - Palliative Care Palliative Care/ Comfort Measures: Not Applicable - Core Measures Any of the following diagnoses?: none Exam - Constitutional Vitals: Temp Pulse Resp BP Pulse Ox 98.1 F 70 18 129/69 97 10/14/20 01:10 10/14/20 04:20 10/14/20 05:57 10/14/20 04:20 10/14/20 04:20 General appearance: Present: no acute distress, well-nourished - EENT Eyes: Present: PERRL ENT: hearing intact, clear oral mucosa - Neck Neck: Present: supple, normal ROM - Respiratory Respiratory effort: normal Respiratory: bilateral: CTA - Cardiovascular Rhythm: regular - Abdominal General gastrointestinal: Present: soft, non-tender, non-distended, normal bowel sounds Female genitourinary: Present: normal - Integumentary Integumentary: Present: clear, warm, dry - Musculoskeletal Musculoskeletal: gait normal, strength equal bilaterally - Psychiatric Psychiatric: appropriate mood/affect, intact judgment & insight - Neurologic Neurologic: CNII-XII intact, moves all extremities - Additional findings Additional findings: Bleeding scant, fundus firm Plan Activity: no restrictions Diet: regular Follow up with: JERRY SOUZA MD [Primary Care Provider] - 7 Days (Congratulations! Please call [phone] to schedule your blood pressure check and your son's circumcision in 1 week. Bring EMLA cream to your son's visit and await furher instructions. Call for any Headaches, visual changes or upper abdominal pain.) Prescriptions: Lidocain2.5%/Prilocai2.5% [Emla] 5 gm TP ONCE PRN #1 tube PRN Reason: Pain labetaloL [Labetalol 200mg TAB] 200 mg PO BID #60 tablet Ibuprofen [Motrin 800 MG tab] 800 mg PO Q8HR PRN #30 tablet PRN Reason: Pain
[2020-10-14] MEDS: PRENATAL VIT27-FE FUMARATE-FOLIC ACID VIT TAB PO SCH (10:27)
--- NOTE | 2020-10-14 20:34 | Event Note ---
Date: 10/14/20 not cleared for d/c at this time. BPs still labile but not in the sever ranges. Willl hold maygo at this time and closely monitor.
[2020-10-15] MEDS: IBUPROFEN 800 MG TAB PO SCH ×3 (05:08→18:00)
[2020-10-15] MEDS: PRENATAL VIT27-FE FUMARATE-FOLIC ACID VIT TAB PO SCH (09:53)
--- NOTE | 2020-10-15 09:58 | Event Note ---
Date: 10/15/20 (Pt desires to go home.) Pt desires to go home. She is meeting all her goals. She denies GARCIA, blurred vision, spots before her eyes, chest pain, and upper abdominal pain. We discussed how to take a proper blood pressure at home and when to call the [employer] provider. Pt is to make an appointment in the office in 1 week for blood pressure check and circumcision. Pt aware and will call office for appointments.
--- NOTE | 2020-10-15 18:47 | Event Note ---
Date: 10/15/20 (Elevated blood pressure) Blood pressure this AM was 160/90. This afternoon at 4 pm it was 155/94. Provider was not informed of these blood pressures. Consulted with Dr. Tapia. Spoke with RN taking care of patient. Will hold off on discharge at this time, increase frequency of vital signs to q 4 hrs, and increase Labetalol to 300mg BID. Will continue to monitor blood pressures tonight and re-evaluate blood pressures on 10/16. Spoke with patient via phone and and informed her of the plan. She agreed to the plan at this time and verbalized understanding. Also of note, can not be discharged home at this time d/t a high bili.
[2020-10-16] MEDS: IBUPROFEN 800 MG TAB PO SCH ×2 (00:14→05:46)
[2020-10-16] MEDS ORDERED: IBUPROFEN 800 MG TAB PO PRN (09:24)
[2020-10-16] MEDS ORDERED: ACETAMINOPHEN 325 MG TAB PO PRN (09:26)
[2020-10-16] MEDS: PRENATAL VIT27-FE FUMARATE-FOLIC ACID VIT TAB PO SCH (10:42)
--- NOTE | 2020-10-16 12:21 | Event Note ---
Date: 10/16/20 (Elevated blood pressures) Pt with some elevated blood pressures. Currently 150's-160's/70-80's. Consulted with Dr. Tapia. Will add Procardia 30 mg PO, with first dose now. Also Labetalol to be changed to TID. Will continue to monitor blood pressures. Pt aware of plan. She continues to deny GARCIA, blurred vision, spots before her eyes, chest pain, shortness of breath, and upper abdominal pain. She continue to do well , minimal bleeding, fundus firm, and adequate I&O's.
[2020-10-16] MEDS: NIFEdipine XL 30 MG TAB PO SCH (12:30)
--- NOTE | 2020-10-16 15:56 | Event Note ---
Date: 10/16/20 (Pt agrees to stay to monitor blood pressures) Received a call from RN that patient's afternoon blood pressure was 173/97. The previous blood pressures have been 160's/90's. The RN also stated that the patient had a very strong desire to go home. I came to discuss with the patient that she can not go home at this time because her blood pressures were too high. We discussed that if she goes home with blood pressures that high, she can become very sick, have a stroke, seizures, or even . Explained to the patient that we have to see if changes in blood pressure medication will work. Patient handed me the phone to also speak with her mother. I explained to her mother the reason why we changed her medication and the need to watch her blood pressure and make sure they are WNL before we send her home. Both the patient and her mother verbalized understanding. The patient has agreed to stay in the hospital for the night. RN taking care of patient aware. Will continue to observe blood pressures.
--- NOTE | 2020-10-17 08:12 | Discharge Summary ---
Providers - Providers Date of Admission: 10/11/20 20:38 Date of discharge: 10/17/20 (pt anxious to go home) Attending physician: JERRY SOUZA Primary care physician: JERRY SOUZA Hospitalization Reason for admission: induction of labor (elevated BP), IUP at term Episiotomy: none Laceration: none Incision: normal Other procedures: none complications: none Discharge diagnosis: IUP at term delivered baby: male Hospital course: uncomplicated vaginal delivery with PreE requiring 24hr MGSO4 PO antihypertensives started BPs 140-120/ 70-80 Denies GARCIA, blurred vision, chest pain. RX for meds on chart. All concerns addressed Condition at discharge: Good Disposition: DC-01 TO HOME OR SELFCARE - Discharge Diagnoses (1) (normal spontaneous vaginal delivery) Status: Acute Comment: RTO 4 weeks PP care (2) Pre-eclampsia Status: Acute Qualifiers: Trimester: third trimester Qualified Code(s): O14.93 - Unspecified pre-ecl ampsia, third trimester Comment: RTO office Saturday for BP check Plan - Discharge Medications Prescriptions: Lidocain2.5%/Prilocai2.5% [Emla] 5 gm TP ONCE PRN #1 tube PRN Reason: Pain labetaloL [Labetalol 200mg TAB] 200 mg PO BID #60 tablet Labetalol HCl [Labetalol 300mg TAB] 300 mg PO BID #60 tablet Labetalol HCl [Labetalol 300mg TAB] 300 mg PO TID #90 tablet Ibuprofen [Motrin 800 MG tab] 800 mg PO Q8HR PRN #30 tablet PRN Reason: Pain NIFEdipine XL [Procardia Xl] 30 mg PO QDAY #30 tablet - Provider Discharge Summary Activity: routine, no sex for 6 weeks, no strenuous exercise Diet: other (no salt) Instructions: routine Additional instructions: [] Smoking cessation referral if applicable(refer to patient education folder for contact #) [] Refer to [facility] Booklet Call your doctor immediately for: * Fever > 100.5 * Heavy vaginal bleeding ( >1 pad per hour) * Severe persistent headache * Shortness of breath * Reddened, hot, painful area to leg or breast * Drainage or odor from incision. * Keep incision clean and dry at all times and follow doctor's instructions regarding bathing/showering - Follow up plan Follow up: JERRY SOUZA MD [Primary Care Provider] - 10/21/20 10:45 am (Congratulations! Please call [phone] your son's circumcision in 1 week. Bring EMLA cream to your son's visit. Do NOT use at home Call for any Headaches, visual changes or upper abdominal pain. Take medications as prescribed. Keep appointment for Saturday for BP check) Forms: [facility] Discharge Summary, Discharge Signature Page
[2020-10-17] MEDS: PRENATAL VIT27-FE FUMARATE-FOLIC ACID VIT TAB PO SCH (11:05)
[2020-10-17] MEDS: NIFEdipine XL 30 MG TAB PO SCH (12:08)
[2020-10-17 12:12] VITALS: BP 139/82
== END 2020-10-17 14:30 | disposition home or self-care (01) | DRG 775 ==
LOC: TRG 17:27 → APU 17:44 → UNDOADMOB 20:35 → LD 20:35 → TRG 20:35 → LD 10-11 20:38 → OBSVTOIN 10-11 20:38 → OB 10-13 19:53
PROVIDERS: ADMIT Obstetrics & Gynecology; ATTEND Obstetrics & Gynecology
PROC: 10E0XZZ Delivery of Products of Conception, External Approach (ICD-10-PCS; principal; 2020-10-12)
PROC: 3E0R3BZ Introduction of Anesthetic Agent into Spinal Canal, Percutaneous Approach (ICD-10-PCS; 2020-10-12)
PROC: 00HU33Z Insertion of Infusion Device into Spinal Canal, Percutaneous Approach (ICD-10-PCS; 2020-10-12)
PROC: 3E0P7VZ Introduction of Hormone into Female Reproductive, Via Natural or Artificial Opening (ICD-10-PCS; 2020-10-12)
DX: O14.94 Unspecified pre-eclampsia, complicating childbirth (principal); O99.824 Streptococcus B carrier state complicating childbirth; O76 Abnormality in fetal heart rate and rhythm complicating labor and delivery; O99.214 Obesity complicating childbirth; Z20.822 Contact with and (suspected) exposure to COVID-19; E66.01 Morbid (severe) obesity due to excess calories; Z3A.37 37 weeks gestation of pregnancy; Z37.0 Single live birth; O71.82 Other specified trauma to perineum and vulva
CPT/HCPCS: 36415; 59025; 59200; 81001; 82565; 82570; 82575; 83615; 83735; 84450; 84460; 84550; 85014; 85018; 85027; 86592; 86850; 86900; 86901; G0378; A6250; J0290; J0360; J2590; J3475; J7120; U0003